=== PATIENT | female | born 1985 | race American Indian/Alaskan Native ===

== ENCOUNTER 2020-05-03 07:34 | Day surgery (SDC) | payer MEDICAID ==
--- NOTE | 2020-04-27 14:52 | History and Physical Report ---
History of Present Illness Date of examination: 04/27/20 History of present illness: 34 yo with h/o ANATOLY and h/o C/S x 2 had recent U/S showing B/L adnexal scarring. PT with a couple months of mid and right sided pelvic pain, extending to her back. Past History Past Medical History: no pertinent history Past Surgical History: section (x 2), hysterectomy Social history: smoking Medications and Allergies Allergies Allergy/AdvReac Type Severity Reaction Status Date / Time dairy Allergy Nausea, Uncoded 04/26/20 11:31 vomiting iv contrast dye Allergy Swelling, Uncoded 04/26/20 11:31 vomiting Home Medications Medication Instructions Recorded Confirmed Last Taken Type Albuterol Sulfate [Albuterol 0.63% 0.63 mg IH TID PRN 04/26/20 04/26/20 Unknown History NEBS] Albuterol Sulfate [Proventil Hfa] 6.7 gm IH Q4H PRN 04/26/20 04/26/20 Unknown History Dicyclomine [Bentyl] 10 mg PO TIDAC 04/26/20 04/26/20 Unknown History Gabapentin [Neurontin] 300 mg PO Q8HR 04/26/20 04/26/20 Unknown History Multivitamin [Multiple Vitamins] 1 each PO DAILY 04/26/20 04/26/20 Unknown History Promethazine [Phenergan] 25 mg PO Q6H 04/26/20 04/26/20 Unknown History Review of Systems All systems: negative (except HPI) - Physical Exam Cardiovascular: Regular rate, No murmurs Lungs: Positive: Clear to auscultation, Normal air movement Results All other labs normal. Assessment and Plan - Patient Problems (1) Pelvic pain Status: Acute Plan to address problem: Pt is for operative laparoscopy and FUNMI on 05/03. PT fully consented, including the possibility of need to remove one or both of her ovaries. She understands and accepts this. She also understands that if scarring to too severe to lyse laparoscopically, that exlap won't be done and surgery will just be concluded.
--- NOTE | 2020-05-02 09:23 | Anesthesia Consultation ---
Anesthesia Consult and Med Hx Date of service: 05/03/20 - Airway Anesthetic Teeth Evaluation: Chipped ROM Head & Neck: Adequate Mental/Hyoid Distance: Adequate Mallampati Class: Class II Intubation Access Assessment: Probably Good (Has overbite) - Pre-Operative Health Status ASA Pre-Surgery Classification: ASA3 Proposed Anesthetic Plan: General - Pulmonary Hx Smoking: Yes (+2FS) Hx Asthma: Yes (Using inhaler now "to get ready for surgery") - Cardiovascular System Hx Hypertension: No - Central Nervous System Hx Neuromuscular Disorder: Yes (Arthritis; neck pain-nerve damage) Hx Psychiatric Problems: No - Gastrointestinal Hx Gastroesophageal Reflux Disease: Yes (Going to have EGD for severe N/V, stomach pain) - Other Systems Hx Substance Use: Yes (Marijuana daily) Hx Cancer: No
[~2020-05-03 07:34] MED LIST: ACETAMINOPHEN 500 MG TAB PO NR; CELECOXIB 200 MG CAP PO NR; GABAPENTIN 300 MG CAP PO NR; LACTATED RINGERS 1,000 ML IV SCH; MAGNESIUM OXIDE 400 MG TAB PO NR; MIDAZOLAM 2 MG/2 ML INJ IV NR
--- NOTE | 2020-05-03 07:46 | Anesthesia Day of Surgery ---
Anesthesia Day of Surgery - Day of Surgery Patient Examined: Yes Patient H&P Reviewed: Yes Patient is NPO: Yes
[2020-05-03] MEDS ORDERED: BUPIVACAINE/PF (0.5%) 5 MG/1 ML 30 ML VIAL INFILTRATI ONE ×2 (09:15→10:43)
[2020-05-03] MEDS ORDERED: propofoL 200 MG/20 ML VIAL IV ONE (09:37)
[2020-05-03] MEDS ORDERED: HYDROmorphone 1 MG/1 ML INJ ONE ×2 (09:37→09:57)
[2020-05-03] MEDS ORDERED: LIDOCAINE MPF (2%) 20 MG/1 ML VIAL 5 ML ONE (09:39)
[2020-05-03] MEDS ORDERED: dexAMETHasone 20 MG/5 ML VIAL ONE (09:39)
[2020-05-03] MEDS ORDERED: GLYCOPYRROLATE 0.4 MG/2 ML INJ ONE (09:39)
[2020-05-03] MEDS ORDERED: SUCCINYLCHOLINE CHLORIDE 200 MG/10 ML INJ MDV ONE (09:39)
[2020-05-03] MEDS ORDERED: ONDANSETRON 4 MG/2 ML INJ ONE (09:39)
[2020-05-03] MEDS ORDERED: ROCURONIUM 50 MG/5 ML INJ IV ONE (09:39)
[2020-05-03] MEDS ORDERED: NEOSTIGMINE 10MG/10 ML INJ MDV ONE (09:39)
[2020-05-03] MEDS ORDERED: PHENYLEPHRINE/NS 1,000 MCG/10 ML SYRINGE (OR USE) IV ONE (09:39)
[2020-05-03] MEDS ORDERED: HYDROmorphone 1 MG/1 ML INJ IV PRN (10:05)
[2020-05-03] MEDS ORDERED: ONDANSETRON 4 MG/2 ML INJ IV PRN (10:05)
--- NOTE | 2020-05-03 11:50 | Post Operative Note ---
Date of procedure: 05/03/20 Pre-op diagnosis: right sided pelvic pain and adhesions Post-op diagnosis: other (same plus suspected endometriosis) Findings: Patient with a history of a hysterectomy. No anterior wall adhesions. Left ovary within normal limits with no adhesions. The right ovary was significantly scarred posteriorly. That scarring was also thickened. In the area of the vaginal cuff particular on the right side were multiple areas suspicious for endometriotic lesions on that peritoneum. An isolated spot on the left pelvic peritoneal wall was also noted. General abdominal survey otherwise within normal limits. Procedure: Indication: 34-year-old with history of a hysterectomy with pelvic pain particularly on the right side and in the right part of her back as well. Procedure: Operative laparoscopy, right oophorectomy, fulguration of suspected endometriosis Patient taken the operating room and prepped and draped in usual fashion. Attention was first turned vaginally where a sponge stick was placed in the vagina Attention was now turned abdominally where a 5 mm incision was made in the left upper quadrant about 2 fingerbreadths inferior to the costal margin in the midclavicular line.. Veres needle then placed in the abdominal cavity. The abdomen was appropriately insufflated with CO2 gas. Veres needle removed and the 5 mm trocar was placed in abdominal cavity. Placement confirmed with the camera. Attention was turned to the right lower quadrant where 2 fingerbreadths superior and medial to the ASIS a 5 mm incision was made and the 5 mm trocar was placed under direct visualization without difficulty. Another 5 mm incision was made suprapubically in the midline in her old hysterectomy scar. This trocar was also placed under direct visualization without difficulty. Attention was first turned the right adnexa which was significantly scarred as noted above. The scarring was attempted to be lysed away. The bowel was clearly moved out of the way with this lysis but there was still significant scarring that remained and was very thick. In light of this and in light of evidence that she has endometriosis in the pelvis, there was concern that if the ovary was kept, that her pain and scarring to that ovary would return. As a result, decision was made to remove the right ovary. In addition her left ovary appeared normal. The right ovary was excised using the LigaSure device. All areas of attachment were lysed with the LigaSure without difficulty and good hemostasis noted. Good ureteral peristalsis was noted afterwards as well. At this point attention was turned to those areas noted above there were suspicious for endometriosis. These were fulgurated using cautery and the EndoShears. Abdomen was desufflated from an good hemostasis noted so abdomen was reinsufflated. At this point the right lower quadrant trocar site was converted from a 5 mm site to a 12 mm trocar site so the Endobag could be placed. The right ovary was removed via that trocar site and the Endo catch bag. Surgicel was then placed over the right adnexal area of dissection as well as the areas of fulguration that were done. The 12 mm trocar was removed and the Lenin Torres device was placed. The trocar site was closed using 0 Vicryl via the Lenin Torres device. At this point good hemostasis noted and the abdomen was fully desufflated. Trochars were removed. Trocar sites were closed with 4-0 Vicryl in a subcuticular fashion followed by Marcaine. The the vaginal sponge stick was removed. Procedure concluded at this point. Patient tolerated the procedure well. All instrument lap counts were correct. Patient taken to the recovery room in stable condition. Anesthesia: GETA Surgeon: RODOLFO CARO Estimated blood loss: minimal Pathology: list (Right ovary) Specimen disposition: to lab Condition: stable Disposition: PACU
--- NOTE | 2020-05-03 11:54 | Short Stay Summary ---
Short Stay Documentation Date of service: 05/03/20 Narrative H&P: See H&P and OP note for details. Patient had a laparoscopic right oophorectomy and fulguration of suspected endometriosis. Patient sent home in stable condition and advised to follow-up in office 2 weeks postop. - History H&P: dictated Social history: smoking - Allergies and Medications Current Medications: Allergies dairy Allergy (Uncoded 04/26/20 11:31) Nausea, vomiting iv contrast dye Allergy (Uncoded 04/26/20 11:31) Swelling, vomiting Home Medications Medication Instructions Recorded Confirmed Last Taken Type Albuterol Sulfate [Albuterol 0.63% 0.63 mg IH TID PRN 04/26/20 05/03/20 03/14/20 08:00 History NEBS] Albuterol Sulfate [Proventil Hfa] 6.7 gm IH Q4H PRN 04/26/20 05/03/20 03/14/20 08:00 History Dicyclomine [Bentyl] 10 mg PO TIDAC 04/26/20 05/03/20 05/02/20 22:00 History Gabapentin [Neurontin] 300 mg PO Q8HR 04/26/20 05/03/20 05/02/20 20:00 History Multivitamin [Multiple Vitamins] 1 each PO DAILY 04/26/20 05/03/20 05/02/20 08:00 History Promethazine [Phenergan] 25 mg PO Q6H 04/26/20 05/03/20 05/03/20 06:00 History Ibuprofen [Motrin 600 MG tab] 600 mg PO Q6H PRN #30 tablet 05/03/20 Unknown Rx oxyCODONE /ACETAMINOPHEN [Percocet 1 tab PO Q4HR PRN #30 tab 05/03/20 Unknown Rx 5/325] Active Medications Acetaminophen (Tylenol) 1,000 mg PO ONCE NR Stop: 05/03/20 20:00 Last Admin: 05/03/20 08:20 Dose: 1,000 mg Documented by: Celecoxib (Celebrex) 400 mg PO PREOP NR Stop: 05/03/20 20:00 Last Admin: 05/03/20 08:20 Dose: 400 mg Documented by: Gabapentin (Gabapentin) 600 mg PO PREOP NR Stop: 05/03/20 20:00 Last Admin: 05/03/20 08:20 Dose: 600 mg Documented by: Hydromorphone HCl (Dilaudid) 0.25 mg IV Q10MIN PRN PRN Reason: Pain, Moderate (4-6) Stop: 05/03/20 23:00 Hydromorphone HCl (Dilaudid) 0.5 mg IV Q10MIN PRN PRN Reason: Pain , Severe (7-10) Stop: 05/04/20 06:00 Lactated Ringer's (Lactated Ringers) 1,000 mls @ 125 mls/hr IV DIRECT SHERRELL Last Admin: 05/03/20 08:45 Dose: 125 mls/hr Documented by: Magnesium Oxide (Mag-Ox) 400 mg PO ONCE NR Stop: 05/03/20 20:00 Last Admin: 05/03/20 08:20 Dose: 400 mg Documented by: Midazolam HCl (Versed) 2 mg IV PREOP NR Stop: 05/03/20 23:59 Last Admin: 05/03/20 09:25 Dose: 2 mg Documented by: Ondansetron HCl (Zofran) 4 mg IV ONCE PRN PRN Reason: Nausea And Vomiting - Disposition Condition at discharge: Stable Disposition: DC-01 TO HOME OR SELFCARE - Discharge Diagnoses (1) Pelvic pain Status: Acute Short Stay Discharge Plan Follow up with: RODOLFO CARO MD [Staff Physician] - 14 Days Prescriptions: Ibuprofen [Motrin 600 MG tab] 600 mg PO Q6H PRN #30 tablet PRN Reason: Pain oxyCODONE /ACETAMINOPHEN [Percocet 5/325] 1 tab PO Q4HR PRN #30 tab PRN Reason: Pain , Severe (7-10)
[2020-05-03] MEDS: HYDROmorphone 1 MG/1 ML INJ IV PRN ×2 (11:59→12:10)
[2020-05-03 12:53] VITALS: BP 120/57
--- NOTE | 2020-05-03 14:08 | Post Anesthesia Evaluation ---
- Post Anesthesia Evaluation Patient Participated: Yes Airway Patent: Yes Stable Respiratory Function: Yes Nausea/Vomiting: No Temp > 96.8F: Yes Pain Manageable: Yes Adequeate Hydration: Yes Anesthesia Complications: No Block Receding Appropriately: Not Applicable Patient on Ventilator: No
== END 2020-05-03 13:31 | disposition home or self-care (01) ==
LOC: OR 07:34
PROVIDERS: ATTEND Obstetrics & Gynecology
DX: N73.6 Female pelvic peritoneal adhesions (postinfective) (principal); R10.2 Pelvic and perineal pain; N83.01 Follicular cyst of right ovary; N83.11 Corpus luteum cyst of right ovary; Z20.828 Contact with and (suspected) exposure to other viral communicable diseases; F17.210 Nicotine dependence, cigarettes, uncomplicated; M19.90 Unspecified osteoarthritis, unspecified site; G43.909 Migraine, unspecified, not intractable, without status migrainosus; J45.909 Unspecified asthma, uncomplicated; K21.9 Gastro-esophageal reflux disease without esophagitis; Z98.891 History of uterine scar from previous surgery; Z79.899 Other long term (current) drug therapy; Z88.8 Allergy status to other drugs, medicaments and biological substances; Z86.718 Personal history of other venous thrombosis and embolism; Z90.710 Acquired absence of both cervix and uterus; Z98.890 Other specified postprocedural states
CPT/HCPCS: 58661; 58662; 88305; 93005; J0330; J1100; J1170; J2250; J2370; J2405; J2704; J2710; J7120; U0003